=== PATIENT | female | born 1965 | race Caucasian/White ===

== ENCOUNTER 2016-12-08 14:21 | Emergency (ER) | payer BC, MEDICAID, OTHER ==
[2016-12-08 14:27] VITALS: BP 124/72
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
[2016-12-08] MEDS ORDERED: IBUPROFEN 800 MG TABLET PO ONE (16:40)
== END 2016-12-08 16:50 | disposition home or self-care (01) ==
LOC: ER 14:21
DX: S80.02XA Contusion of left knee, initial encounter (principal); M25.562 Pain in left knee; M54.9 Dorsalgia, unspecified; V94.9XXA Unspecified water transport accident, initial encounter; F17.210 Nicotine dependence, cigarettes, uncomplicated
CPT/HCPCS: 99283